=== PATIENT | female | born 1985 | race Caucasian/White ===

== ENCOUNTER 2018-09-12 13:19 | Emergency (ER) | payer OTHER ==
[2018-09-12] MEDS ORDERED: Phenazopyridine HCl 97.5 MG TABLET ONE (13:42)
[2018-09-12] MEDS ORDERED: Sulfameth/Trimethoprim DS 800-160mg TAB ONE (13:42)
[2018-09-12 14:01] LABS: Clarity Clear (Clear); Leukocyte Negative (Negative); Nitrite Negative (Negative); Protein, Urine (Dipstick) Negative (Neg-Trace); pH, Urine 6.5 (5.0-9.0)
[2018-09-12 14:02] LABS: Bacteria/HPF None Seen HPF (None Seen); Bilirubin Negative (Negative); Blood, Urine Moderate (Negative); Glucose, Urine (Dipstick) Negative (Negative); Other Microscopic Description C&S SET UP; Squamous Epithelial 0-3 HPF (0-3); Urobilinogen 0.2 mg/dL (0.2-1.0); WBC/HPF None Seen HPF (0-3)
== END 2018-09-12 13:49 | disposition home or self-care (01) ==
LOC: BURERS 13:19
DX: N39.0 Urinary tract infection, site not specified (principal); D64.9 Anemia, unspecified; G43.909 Migraine, unspecified, not intractable, without status migrainosus; Z86.73 Personal history of transient ischemic attack (TIA), and cerebral infarction without residual deficits; J45.909 Unspecified asthma, uncomplicated; F41.9 Anxiety disorder, unspecified; Z87.891 Personal history of nicotine dependence; Z79.01 Long term (current) use of anticoagulants; Z79.899 Other long term (current) drug therapy
CPT/HCPCS: 81003; 81015; 87086; 99283